=== PATIENT | male | born 1955 | race Caucasian/White ===

== ENCOUNTER 2022-06-10 05:18 | Inpatient (IN) | payer OTHER, MEDICARE ==
[2022-06-10] MEDS ORDERED: Scopolamine 1.5 MG Transdermal Patch TOP ONE (06:00)
[2022-06-10] MEDS ORDERED: Acetaminophen 500 MG Tab PO ONE (06:00)
[2022-06-10] MEDS ORDERED: Celecoxib 200 MG Cap PO ONE (06:00)
[2022-06-10] MEDS ORDERED: Metoprolol Succinate 25 MG Tab.ER PO ONE (06:06)
[2022-06-10 06:07] LABS: HEMOGLOBIN A1C 7.7 % (4.5-6.2)
[2022-06-10 06:22] LABS: ESTIMATED GFR 74 mL/min (>60)
[2022-06-10] MEDS ORDERED: cefOXitin 2 GM Vial ONE (06:32)
[2022-06-10] MEDS: Dextrose 5%-Lactated Ringers 1,000 ML IV SCH (06:55)
[2022-06-10] MEDS ORDERED: cefOXitin 2 GM in Sodium Chloride 0.9% 50 ML IV ONE (07:00)
[2022-06-10] MEDS ORDERED: Dexamethasone 4 MG/ML SDV ONE (07:07)
[2022-06-10] MEDS ORDERED: Glycopyrrolate 0.2 MG/ML 5 ML MDV ONE (07:07)
[2022-06-10] MEDS ORDERED: Neostigmine Methylsulfate 1 MG/ML 5 ML Syringe ONE (07:07)
[2022-06-10] MEDS ORDERED: Propofol 200 MG/20 ML SDV ONE (07:07)
[2022-06-10] MEDS ORDERED: Ondansetron 4 MG/2 ML SDV ONE (07:07)
[2022-06-10] MEDS ORDERED: Rocuronium 50 MG/5 ML Vial ONE ×2 (07:07→08:39)
[2022-06-10] MEDS ORDERED: Succinylcholine 200 MG/10 ML MDV ONE (07:07)
[2022-06-10] MEDS ORDERED: fentaNYL 250 MCG/5 ML SDV ONE ×2 (07:07→07:56)
[2022-06-10] MEDS ORDERED: Albuterol/Ipratropium 3.0-0.5 MG/3 ML Neb Soln NEB ONE (07:15)
[2022-06-10] MEDS ORDERED: Ketamine 24 MG in Sodium Chloride 0.9% 19.76 ML IV SCH (07:30)
[2022-06-10] MEDS ORDERED: Ketamine 500 MG/5 ML MDV IV SCH (07:30)
[2022-06-10] MEDS ORDERED: Ondansetron 4 MG/2 ML SDV IVPUSH PRN (08:38)
[2022-06-10] MEDS ORDERED: Naloxone 0.4 MG/ML SDV IVPUSH PRN (08:38)
[2022-06-10] MEDS ORDERED: diphenhydrAMINE 50 MG/ML SDV IVPUSH PRN (08:38)
[2022-06-10] MEDS ORDERED: HYDROmorphone/Normal Saline 6 MG/30 ML PCA Vial IV PRN (08:38)
[2022-06-10] MEDS ORDERED: diphenhydrAMINE 25 MG Cap PO PRN (08:38)
[2022-06-10] MEDS ORDERED: Naloxone 0.4 MG/ML SDV IV PRN (09:00)
[2022-06-10] MEDS ORDERED: fentaNYL 100 MCG/2 ML SDV ONE (09:26)
[2022-06-10] MEDS ORDERED: Linezolid 600 MG/300 ML Premix Bag IRR ONE ×2 (09:49→10:21)
[2022-06-10] MEDS: Meropenem 500 MG SDV ONE ×2 (09:49→10:21)
[2022-06-10] MEDS ORDERED: Lactated Ringers 1,000 ML ONE (10:53)
[2022-06-10] MEDS ORDERED: hydrOXYzine HCL 100 MG/2 ML SDV IM ONE (11:59)
[2022-06-10] MEDS ORDERED: Insulin Lispro 100 Unit/ML 3 ML KwikPen SUBCUT ONE (12:00)
[2022-06-10] MEDS ORDERED: Glucagon,Human Recombinant 1 MG Vial IM PRN ×4 (12:00→21:48)
[2022-06-10] MEDS ORDERED: 50% Dextrose in Water 50 ML Syringe IVPUSH PRN ×4 (12:00→21:48)
[2022-06-10] MEDS ORDERED: Cyclobenzaprine 10 MG Tab PO PRN (12:58)
[2022-06-10] MEDS ORDERED: Acetaminophen 500 MG Tab PO PRN (13:00)
[2022-06-10] MEDS ORDERED: Labetalol 20 MG/4 ML Syringe IVPUSH PRN (13:00)
[2022-06-10] MEDS ORDERED: Dextrose 5%-Lactated Ringers 1,000 ML IV SCH (13:00)
[2022-06-10] MEDS ORDERED: Lactated Ringers 1,000 ML IV SCH (13:00)
[2022-06-10] MEDS ORDERED: Metoclopramide 10 MG/2 ML SDV IVPUSH PRN (13:00)
[2022-06-10] MEDS ORDERED: Albuterol/Ipratropium 3.0-0.5 MG/3 ML Neb Soln INH PRN (13:00)
[2022-06-10] MEDS ORDERED: Lactated Ringers 500 ML IV ONE (14:15)
[2022-06-10] MEDS: Coagulation Factor VIIa Recombinant (per MCG) 2 MG Vial IVPUSH SCH ×2 (14:24→14:47)
[2022-06-10] MEDS: Tranexamic Acid 1,000 MG in Sodium Chloride 0.9% 50 ML IV SCH ×2 (14:26→17:45)
[2022-06-10] MEDS: Acetaminophen 500 MG Tab PO SCH ×2 (14:54→21:30)
[2022-06-10] MEDS: Pantoprazole 40 MG Vial IVPUSH SCH (14:56)
[2022-06-10] MEDS: cefOXitin 2 GM in Sodium Chloride 0.9% 50 ML IV SCH ×2 (14:58→20:13)
[2022-06-10] MEDS: MVI, Adult with Vitamin K 10 ML, Thiamine 200 MG, Zinc/Copper/Manganese/Selenium 1 ML i... IV SCH ×4 (14:59)
[2022-06-10] MEDS: Albuterol/Ipratropium 3.0-0.5 MG/3 ML Neb Soln INH SCH ×2 (15:04→21:25)
[2022-06-10] MEDS ORDERED: Insulin Lispro 100 Unit/ML 3 ML KwikPen SUBCUT STA (17:04)
[2022-06-10] MEDS ORDERED: Tranexamic Acid 1,000 MG in Sodium Chloride 0.9% 50 ML IV ONE (17:15)
[2022-06-10] MEDS: Insulin Lispro 100 Unit/ML 3 ML KwikPen SUBCUT SCH ×2 (17:39→21:53)
[2022-06-10] MEDS ORDERED: BRILINTA 60 MG PO SCH (21:00)
[2022-06-10] MEDS ORDERED: Lidocaine 2% Jelly 10 ML Urojet MUCMEM ONE (21:22)
[2022-06-10] MEDS: atorvaSTATin 20 MG Tab PO SCH (21:25)
[2022-06-10] MEDS ORDERED: Insulin Lispro 100 Units/ML 3 ML Vial SUBCUT ONE (21:48)
[2022-06-10] MEDS: Lactated Ringers 1,000 ML IV SCH (23:36)
[2022-06-11] MEDS ORDERED: Insulin Lispro 100 Units/ML 3 ML Vial SUBCUT ONE ×2 (00:11→02:49)
[2022-06-11] MEDS ORDERED: 50% Dextrose in Water 50 ML Syringe IVPUSH PRN ×3 (00:11→02:51)
[2022-06-11] MEDS ORDERED: Glucagon,Human Recombinant 1 MG Vial IM PRN ×3 (00:11→02:51)
[2022-06-11] MEDS: hydrOXYzine HCL 100 MG/2 ML SDV IM PRN ×3 (01:28→20:29)
[2022-06-11] MEDS: cefOXitin 2 GM in Sodium Chloride 0.9% 50 ML IV SCH ×4 (01:29→19:36)
[2022-06-11] MEDS ORDERED: Insulin Regular, Human 100 Units/ML 3 ML Vial SUBCUT ONE ×3 (02:51→06:47)
[2022-06-11] MEDS: Lactated Ringers 1,000 ML IV SCH ×3 (05:24→14:33)
[2022-06-11 05:30] LABS: ESTIMATED GFR 41 mL/min (>60)
[2022-06-11] MEDS: Acetaminophen 500 MG Tab PO SCH ×3 (05:40→22:48)
[2022-06-11] MEDS: Insulin Lispro 100 Unit/ML 3 ML KwikPen SUBCUT SCH ×2 (06:19→10:13)
[2022-06-11] MEDS ORDERED: Insulin Lispro 100 Unit/ML 3 ML KwikPen SUBCUT ONE (06:45)
[2022-06-11] MEDS ORDERED: Insulin Glargine,Human Rec. Analog 100 Units/ML 3 ML Pen SUBCUT ONE (06:51)
[2022-06-11] MEDS ORDERED: Lactated Ringers 500 ML IV ONE (06:53)
[2022-06-11] MEDS: Albuterol/Ipratropium 3.0-0.5 MG/3 ML Neb Soln INH SCH ×4 (07:16→22:40)
[2022-06-11] MEDS: SCOPOLAMINE PATCH CHECK TOP SCH (08:06)
[2022-06-11] MEDS: Metoprolol Succinate 25 MG Tab.ER PO SCH (08:08)
[2022-06-11] MEDS ORDERED: Celecoxib 200 MG Cap PO SCH (09:00)
[2022-06-11] MEDS: Magnesium Sulfate/Water 2 GM in Premix Bag 1 BAG IV SCH ×3 (10:10→20:16)
[2022-06-11] MEDS ORDERED: Insulin Regular in 0.9 % NACL 100 ML IV SCH (10:30)
[2022-06-11] MEDS: Pantoprazole 40 MG Vial IVPUSH SCH (14:23)
[2022-06-11] MEDS: MVI, Adult with Vitamin K 10 ML, Thiamine 200 MG, Zinc/Copper/Manganese/Selenium 1 ML i... IV SCH ×4 (16:01)
[2022-06-11] MEDS: Heparin Sodium 5,000 Units/ML Vial SUBCUT SCH (18:13)
[2022-06-11] MEDS: atorvaSTATin 20 MG Tab PO SCH (22:30)
[2022-06-12] MEDS: Lactated Ringers 1,000 ML IV SCH ×2 (01:04→06:15)
[2022-06-12] MEDS: cefOXitin 2 GM in Sodium Chloride 0.9% 50 ML IV SCH ×4 (02:02→20:02)
[2022-06-12] MEDS: Magnesium Sulfate/Water 2 GM in Premix Bag 1 BAG IV SCH ×4 (02:12→20:44)
[2022-06-12] MEDS: hydrOXYzine HCL 100 MG/2 ML SDV IM PRN ×2 (03:18→22:38)
[2022-06-12 05:17] LABS: ESTIMATED GFR 82 mL/min (>60)
[2022-06-12] MEDS: Acetaminophen 500 MG Tab PO SCH ×3 (05:19→21:50)
[2022-06-12] MEDS: Heparin Sodium 5,000 Units/ML Vial SUBCUT SCH (05:58)
[2022-06-12] MEDS: Albuterol/Ipratropium 3.0-0.5 MG/3 ML Neb Soln INH SCH ×4 (07:26→21:43)
[2022-06-12] MEDS ORDERED: Lactated Ringers 1,000 ML IV SCH (08:00)
[2022-06-12 08:53] LABS: HEMOGLOBIN A1C 8.3 % (4.5-6.2)
[2022-06-12] MEDS ORDERED: Cyanocobalamin (Vitamin B12) 1,000 MCG/ML SDV IM ONE (09:00)
[2022-06-12] MEDS: SCOPOLAMINE PATCH CHECK TOP SCH (09:50)
[2022-06-12] MEDS: Potassium Phos in 0.9 % NaCl 15 MMOL in Premix Bag 1 BAG IV SCH ×6 (09:58→16:23)
[2022-06-12] MEDS: Insulin Glargine,Human Rec. Analog 100 Units/ML 3 ML Pen SUBCUT SCH ×2 (10:06→20:54)
[2022-06-12] MEDS ORDERED: Furosemide 20 MG/2 ML VIAL IVPUSH ONE (10:30)
[2022-06-12] MEDS: metFORMIN 500 MG Tab PO SCH ×2 (10:53→20:58)
[2022-06-12] MEDS: Metoprolol Succinate 25 MG Tab.ER PO SCH (10:53)
[2022-06-12] MEDS: Insulin Lispro 100 Unit/ML 3 ML KwikPen SUBCUT SCH ×3 (11:15→20:17)
[2022-06-12] MEDS: Pantoprazole 40 MG Vial IVPUSH SCH (13:31)
[2022-06-12] MEDS ORDERED: Iopamidol 612 MG/ML 100 ML Bottle IV SCH (14:30)
[2022-06-12] MEDS ORDERED: Sodium Chloride 0.9% 75 ML IV SCH (14:30)
[2022-06-12] MEDS: Aspirin 325 MG Tab.EC PO SCH (17:28)
[2022-06-12] MEDS: atorvaSTATin 20 MG Tab PO SCH (20:59)
[2022-06-13] MEDS: Magnesium Sulfate/Water 2 GM in Premix Bag 1 BAG IV SCH (01:31)
[2022-06-13] MEDS: hydrOXYzine HCL 100 MG/2 ML SDV IM PRN ×2 (04:00→21:31)
[2022-06-13 05:08] LABS: ESTIMATED GFR 96 mL/min (>60)
[2022-06-13] MEDS: Acetaminophen 500 MG Tab PO SCH ×4 (05:44→22:36)
[2022-06-13] MEDS: Albuterol/Ipratropium 3.0-0.5 MG/3 ML Neb Soln INH SCH ×4 (07:03→21:32)
[2022-06-13] MEDS: Insulin Lispro 100 Unit/ML 3 ML KwikPen SUBCUT SCH ×4 (08:00→21:31)
[2022-06-13] MEDS: Insulin Glargine,Human Rec. Analog 100 Units/ML 3 ML Pen SUBCUT SCH ×2 (08:00→21:30)
[2022-06-13] MEDS: metFORMIN 500 MG Tab PO SCH ×2 (08:38→21:32)
[2022-06-13] MEDS: Metoprolol Succinate 25 MG Tab.ER PO SCH (08:38)
[2022-06-13] MEDS: Aspirin 325 MG Tab.EC PO SCH (08:38)
[2022-06-13] MEDS: Potassium Phos in 0.9 % NaCl 15 MMOL in Premix Bag 1 BAG IV SCH ×6 (08:39→15:39)
[2022-06-13] MEDS ORDERED: Furosemide 20 MG/2 ML VIAL IVPUSH ONE (11:30)
[2022-06-13] MEDS: Pantoprazole 40 MG Vial IVPUSH SCH (13:42)
[2022-06-13] MEDS: Ticagrelor 90 MG Tab PO SCH (21:32)
[2022-06-13] MEDS: atorvaSTATin 20 MG Tab PO SCH (21:32)
[2022-06-14] MEDS: Lactated Ringers 1,000 ML IV SCH ×3 (00:24→20:40)
[2022-06-14] MEDS: Metoprolol Succinate 25 MG Tab.ER PO SCH ×2 (02:30→14:57)
[2022-06-14 05:18] LABS: ESTIMATED GFR 96 mL/min (>60)
[2022-06-14] MEDS: HYDROmorphone 0.5 MG/0.5 ML Syringe IVPUSH PRN ×2 (05:26→20:42)
[2022-06-14] MEDS: Acetaminophen 500 MG Tab PO SCH ×3 (05:26→21:18)
[2022-06-14] MEDS: Albuterol/Ipratropium 3.0-0.5 MG/3 ML Neb Soln INH SCH ×4 (07:17→20:54)
[2022-06-14] MEDS: Insulin Lispro 100 Unit/ML 3 ML KwikPen SUBCUT SCH ×4 (07:58→21:01)
[2022-06-14] MEDS: Linezolid 600 MG in Premix Bag 1 BAG IV SCH ×2 (08:43→20:49)
[2022-06-14] MEDS: Insulin Glargine,Human Rec. Analog 100 Units/ML 3 ML Pen SUBCUT SCH ×2 (10:32→21:02)
[2022-06-14] MEDS ORDERED: Iopamidol 612 MG/ML 30 ML SDV PO ONE (11:51)
[2022-06-14] MEDS: Ticagrelor 90 MG Tab PO SCH ×2 (14:56→20:50)
[2022-06-14] MEDS: Aspirin 81 MG Tab.Chew PO SCH (14:56)
[2022-06-14] MEDS: metFORMIN 500 MG Tab PO SCH ×2 (14:56→20:50)
[2022-06-14] MEDS: Pantoprazole 40 MG Vial IVPUSH SCH (14:58)
[2022-06-14] MEDS: atorvaSTATin 20 MG Tab PO SCH (20:51)
[2022-06-15] MEDS: HYDROmorphone 0.5 MG/0.5 ML Syringe IVPUSH PRN ×2 (02:01→09:54)
[2022-06-15 05:15] LABS: ESTIMATED GFR 100 mL/min (>60)
[2022-06-15] MEDS: Acetaminophen 500 MG Tab PO SCH ×3 (05:57→21:45)
[2022-06-15] MEDS: Albuterol/Ipratropium 3.0-0.5 MG/3 ML Neb Soln INH SCH ×4 (07:05→21:54)
[2022-06-15] MEDS: Insulin Lispro 100 Unit/ML 3 ML KwikPen SUBCUT SCH ×4 (08:27→20:41)
[2022-06-15] MEDS: Linezolid 600 MG in Premix Bag 1 BAG IV SCH ×2 (08:36→20:49)
[2022-06-15] MEDS: Ticagrelor 90 MG Tab PO SCH ×2 (09:31→21:35)
[2022-06-15] MEDS: Aspirin 81 MG Tab.Chew PO SCH (09:31)
[2022-06-15] MEDS: Metoprolol Succinate 25 MG Tab.ER PO SCH (09:33)
[2022-06-15] MEDS: metFORMIN 500 MG Tab PO SCH (09:44)
[2022-06-15] MEDS: Insulin Glargine,Human Rec. Analog 100 Units/ML 3 ML Pen SUBCUT SCH ×2 (09:44→21:44)
[2022-06-15] MEDS ORDERED: Bupivacaine 0.5% 30 ML SDV ONE (11:57)
[2022-06-15] MEDS ORDERED: Meropenem 500 MG SDV ONE ×2 (11:58→13:24)
[2022-06-15] MEDS ORDERED: Lidocaine 1% with EPINEPHrine 1:100,000 50 ML MDV ONE (11:58)
[2022-06-15] MEDS ORDERED: Ondansetron 4 MG/2 ML SDV ONE (12:25)
[2022-06-15] MEDS ORDERED: fentaNYL 250 MCG/5 ML SDV ONE (12:25)
[2022-06-15] MEDS ORDERED: Rocuronium 50 MG/5 ML Vial ONE ×3 (12:25→14:00)
[2022-06-15] MEDS ORDERED: Propofol 200 MG/20 ML SDV ONE (12:25)
[2022-06-15] MEDS ORDERED: Dexamethasone 4 MG/ML SDV ONE (12:25)
[2022-06-15] MEDS ORDERED: Heparin Sodium 5,000 Units/ML Vial ONE (12:34)
[2022-06-15] MEDS ORDERED: Meropenem 500 MG in Sodium Chloride 0.9% 50 ML IV ONE (13:00)
[2022-06-15] MEDS ORDERED: Linezolid 600 MG/300 ML Premix Bag IRR ONE ×2 (13:52→13:53)
[2022-06-15] MEDS ORDERED: Naloxone 0.4 MG/ML SDV IVPUSH PRN (13:56)
[2022-06-15] MEDS ORDERED: diphenhydrAMINE 50 MG/ML SDV IVPUSH PRN (13:56)
[2022-06-15] MEDS ORDERED: Ondansetron 4 MG/2 ML SDV IVPUSH PRN (13:56)
[2022-06-15] MEDS ORDERED: diphenhydrAMINE 25 MG Cap PO PRN (13:56)
[2022-06-15] MEDS ORDERED: Midazolam 1 MG/ML 2 ML SDV ONE (14:18)
[2022-06-15] MEDS: HYDROmorphone/Normal Saline 6 MG/30 ML PCA Vial IV PRN (14:58)
[2022-06-15] MEDS ORDERED: HYDROmorphone 1 MG/ML Syringe IVPUSH STA (15:11)
[2022-06-15] MEDS: Dextrose 5%-Lactated Ringers 1,000 ML IV SCH (15:54)
[2022-06-15] MEDS ORDERED: Dextrose 5%-Lactated Ringers 1,000 ML IV SCH (16:00)
[2022-06-15] MEDS: propofoL 100 ML IV SCH (16:35)
[2022-06-15] MEDS: Pantoprazole 40 MG Vial IVPUSH SCH (17:00)
[2022-06-15] MEDS: Meropenem 500 MG in Sodium Chloride 0.9% 50 ML IV SCH (18:29)
[2022-06-15] MEDS: Lactated Ringers 1,000 ML IV SCH ×2 (19:00→23:09)
[2022-06-15] MEDS ORDERED: Lactated Ringers 500 ML IV SCH (19:00)
[2022-06-15] MEDS ORDERED: Norepinephrine Bit/D5W Premix 4 MG in Premix Bag 1 BAG IV SCH (20:30)
[2022-06-15] MEDS: atorvaSTATin 20 MG Tab PO SCH (21:45)
[2022-06-15] MEDS ORDERED: Sodium Chloride 0.9% 1,000 ML IV SCH (22:00)
[2022-06-16] MEDS: Meropenem 500 MG in Sodium Chloride 0.9% 50 ML IV SCH ×4 (00:06→18:04)
[2022-06-16] MEDS ORDERED: Heparin Sodium 5,000 UNITS in Sodium Chloride 0.9% 500 ML IV SCH (00:15)
[2022-06-16] MEDS: Acetaminophen 500 MG Tab PO SCH ×3 (05:41→21:15)
[2022-06-16] MEDS: propofoL 100 ML IV SCH ×2 (05:43→21:55)
[2022-06-16] MEDS: Insulin Lispro 100 Unit/ML 3 ML KwikPen SUBCUT SCH ×4 (05:44→21:29)
[2022-06-16 05:48] LABS: ESTIMATED GFR 93 mL/min (>60)
[2022-06-16] MEDS: Lactated Ringers 1,000 ML IV SCH ×3 (06:01→20:48)
[2022-06-16] MEDS: Albuterol/Ipratropium 3.0-0.5 MG/3 ML Neb Soln INH SCH ×4 (07:02→21:25)
[2022-06-16] MEDS ORDERED: Lactated Ringers 1,000 ML IV SCH ×2 (08:00→10:00)
[2022-06-16] MEDS: Linezolid 600 MG in Premix Bag 1 BAG IV SCH ×2 (08:19→20:56)
[2022-06-16] MEDS: Ticagrelor 90 MG Tab PO SCH ×2 (08:29→20:55)
[2022-06-16] MEDS: Aspirin 81 MG Tab.Chew PO SCH (08:29)
[2022-06-16] MEDS: Metoprolol Succinate 25 MG Tab.ER PO SCH (08:30)
[2022-06-16] MEDS: Insulin Glargine,Human Rec. Analog 100 Units/ML 3 ML Pen SUBCUT SCH ×3 (10:10→21:28)
[2022-06-16] MEDS: Pantoprazole 40 MG Vial IVPUSH SCH (14:45)
[2022-06-16] MEDS: atorvaSTATin 20 MG Tab PO SCH (20:55)
[2022-06-17] MEDS: Meropenem 500 MG in Sodium Chloride 0.9% 50 ML IV SCH ×4 (00:19→17:48)
[2022-06-17] MEDS: HYDROmorphone/Normal Saline 6 MG/30 ML PCA Vial IV PRN (04:03)
[2022-06-17] MEDS: Lactated Ringers 1,000 ML IV SCH ×3 (04:14→17:53)
[2022-06-17 05:14] LABS: ESTIMATED GFR 96 mL/min (>60)
[2022-06-17] MEDS: propofoL 100 ML IV SCH (05:35)
[2022-06-17] MEDS: Insulin Lispro 100 Unit/ML 3 ML KwikPen SUBCUT SCH ×4 (06:29→21:27)
[2022-06-17] MEDS: Acetaminophen 500 MG Tab PO SCH ×3 (06:29→21:12)
[2022-06-17] MEDS: Albuterol/Ipratropium 3.0-0.5 MG/3 ML Neb Soln INH SCH ×4 (07:02→21:13)
[2022-06-17] MEDS: Linezolid 600 MG in Premix Bag 1 BAG IV SCH ×2 (07:42→19:56)
[2022-06-17] MEDS: Insulin Glargine,Human Rec. Analog 100 Units/ML 3 ML Pen SUBCUT SCH (10:24)
[2022-06-17] MEDS: Nystatin Susp 100,000 Unit/ML 5 ML UD Cup PO SCH ×3 (10:34→21:13)
[2022-06-17] MEDS: Ticagrelor 90 MG Tab PO SCH ×2 (11:53→21:13)
[2022-06-17] MEDS: Aspirin 81 MG Tab.Chew PO SCH (11:53)
[2022-06-17] MEDS: Metoprolol Succinate 25 MG Tab.ER PO SCH (11:53)
[2022-06-17] MEDS: Pantoprazole 40 MG Vial IVPUSH SCH (14:11)
[2022-06-17] MEDS: atorvaSTATin 20 MG Tab PO SCH (21:13)
[2022-06-18] MEDS: Lactated Ringers 1,000 ML IV SCH (02:33)
[2022-06-18] MEDS: Meropenem 500 MG in Sodium Chloride 0.9% 50 ML IV SCH ×5 (05:09→17:41)
[2022-06-18] MEDS: Insulin Lispro 100 Unit/ML 3 ML KwikPen SUBCUT SCH ×4 (05:25→22:00)
[2022-06-18 05:27] LABS: ESTIMATED GFR 105 mL/min (>60)
[2022-06-18] MEDS: Nystatin Susp 100,000 Unit/ML 5 ML UD Cup PO SCH ×4 (05:31→21:48)
[2022-06-18] MEDS: Acetaminophen 500 MG Tab PO SCH ×3 (05:31→21:48)
[2022-06-18] MEDS ORDERED: Meropenem 500 MG SDV ONE (06:52)
[2022-06-18] MEDS ORDERED: Lidocaine 1% with EPINEPHrine 1:100,000 50 ML MDV ONE (06:53)
[2022-06-18] MEDS ORDERED: Bupivacaine 0.5% 30 ML SDV ONE (06:53)
[2022-06-18] MEDS ORDERED: Propofol 200 MG/20 ML SDV ONE (07:10)
[2022-06-18] MEDS: Albuterol/Ipratropium 3.0-0.5 MG/3 ML Neb Soln INH SCH ×4 (07:11→21:52)
[2022-06-18] MEDS ORDERED: Central Total Parenteral Nutrition Bag SCH (07:45)
[2022-06-18] MEDS: Linezolid 600 MG in Premix Bag 1 BAG IV SCH ×2 (08:37→20:41)
[2022-06-18] MEDS: Aspirin 81 MG Tab.Chew PO SCH (08:59)
[2022-06-18] MEDS: Metoprolol Succinate 25 MG Tab.ER PO SCH (08:59)
[2022-06-18] MEDS: Ticagrelor 90 MG Tab PO SCH ×2 (08:59→21:40)
[2022-06-18] MEDS ORDERED: Furosemide 20 MG/2 ML VIAL IVPUSH ONE ×3 (10:00→18:00)
[2022-06-18] MEDS: Magnesium Sulfate/Water 2 GM in Premix Bag 1 BAG IV SCH ×3 (10:02→21:42)
[2022-06-18] MEDS: 1: AA 4.25%/Calcium/D10W/Lytes 1,000 ML with MVI, Adult with Vitamin K 10 ML, Zinc/Coppe IV SCH ×6 (10:11→22:21)
[2022-06-18] MEDS: Pantoprazole 40 MG Delayed-Release Granules 1 Packet PO SCH (21:41)
[2022-06-18] MEDS: atorvaSTATin 20 MG Tab PO SCH (21:41)
[2022-06-18] MEDS: Insulin Glargine,Human Rec. Analog 100 Units/ML 3 ML Pen SUBCUT SCH (21:58)
[2022-06-19] MEDS: Meropenem 500 MG in Sodium Chloride 0.9% 50 ML IV SCH ×5 (00:08→23:59)
[2022-06-19] MEDS: HYDROmorphone/Normal Saline 6 MG/30 ML PCA Vial IV PRN (01:38)
[2022-06-19] MEDS: Magnesium Sulfate/Water 2 GM in Premix Bag 1 BAG IV SCH (02:20)
[2022-06-19] MEDS: Insulin Lispro 100 Unit/ML 3 ML KwikPen SUBCUT SCH ×4 (03:35→20:37)
[2022-06-19 04:55] LABS: ESTIMATED GFR 100 mL/min (>60)
[2022-06-19] MEDS: Acetaminophen 500 MG Tab PO SCH ×4 (05:25→22:14)
[2022-06-19] MEDS: Nystatin Susp 100,000 Unit/ML 5 ML UD Cup PO SCH ×5 (05:25→22:14)
[2022-06-19] MEDS: Albuterol/Ipratropium 3.0-0.5 MG/3 ML Neb Soln INH SCH ×4 (07:03→20:34)
[2022-06-19] MEDS ORDERED: Central Total Parenteral Nutrition Bag SCH (07:30)
[2022-06-19] MEDS: Linezolid 600 MG in Premix Bag 1 BAG IV SCH ×2 (07:44→20:30)
[2022-06-19] MEDS: Metoprolol Succinate 25 MG Tab.ER PO SCH (08:16)
[2022-06-19] MEDS: Aspirin 81 MG Tab.Chew PO SCH (08:16)
[2022-06-19] MEDS: Ticagrelor 90 MG Tab PO SCH ×2 (08:16→20:36)
[2022-06-19] MEDS: Docusate Sodium 100 MG Cap PO SCH ×2 (08:17→20:35)
[2022-06-19] MEDS: Insulin Glargine,Human Rec. Analog 100 Units/ML 3 ML Pen SUBCUT SCH ×2 (09:25→20:38)
[2022-06-19] MEDS ORDERED: Furosemide 20 MG/2 ML VIAL IVPUSH ONE (11:00)
[2022-06-19] MEDS: 1: AA 4.25%/Calcium/D10W/Lytes 1,000 ML with MVI, Adult with Vitamin K 10 ML, Zinc/Coppe IV SCH ×3 (13:02)
[2022-06-19] MEDS: atorvaSTATin 20 MG Tab PO SCH (20:36)
[2022-06-19] MEDS: Pantoprazole 40 MG Delayed-Release Granules 1 Packet PO SCH (20:36)
[2022-06-20] MEDS: 1: AA 4.25%/Calcium/D10W/Lytes 1,000 ML with MVI, Adult with Vitamin K 10 ML, Zinc/Coppe IV SCH ×6 (00:08→14:07)
[2022-06-20] MEDS: Magnesium Sulfate/Water 2 GM in Premix Bag 1 BAG IV SCH (00:41)
[2022-06-20] MEDS: Insulin Lispro 100 Unit/ML 3 ML KwikPen SUBCUT SCH ×5 (00:41→21:17)
[2022-06-20] MEDS: HYDROmorphone/Normal Saline 6 MG/30 ML PCA Vial IV PRN (03:46)
[2022-06-20 05:19] LABS: ESTIMATED GFR 100 mL/min (>60)
[2022-06-20] MEDS: Acetaminophen 500 MG Tab PO SCH ×3 (05:54→21:51)
[2022-06-20] MEDS: Meropenem 500 MG in Sodium Chloride 0.9% 50 ML IV SCH ×3 (05:54→17:09)
[2022-06-20] MEDS: Nystatin Susp 100,000 Unit/ML 5 ML UD Cup PO SCH ×4 (05:55→21:51)
[2022-06-20] MEDS ORDERED: Central Total Parenteral Nutrition Bag SCH (07:00)
[2022-06-20] MEDS ORDERED: Iopamidol 612 MG/ML 30 ML SDV PO ONE (07:26)
[2022-06-20] MEDS ORDERED: Iopamidol 612 MG/ML 500 ML Multipack Bottle IV ONE (07:26)
[2022-06-20] MEDS ORDERED: Sodium Chloride 0.9% 75 ML IV SCH (07:30)
[2022-06-20] MEDS: Albuterol/Ipratropium 3.0-0.5 MG/3 ML Neb Soln INH SCH ×4 (07:31→21:47)
[2022-06-20] MEDS: Linezolid 600 MG in Premix Bag 1 BAG IV SCH ×2 (07:39→21:20)
[2022-06-20] MEDS: Insulin Glargine,Human Rec. Analog 100 Units/ML 3 ML Pen SUBCUT SCH ×2 (08:54→21:19)
[2022-06-20] MEDS: Aspirin 81 MG Tab.Chew PO SCH (10:00)
[2022-06-20] MEDS: Metoprolol Succinate 25 MG Tab.ER PO SCH (10:00)
[2022-06-20] MEDS: Docusate Sodium 100 MG Cap PO SCH ×2 (10:03→21:46)
[2022-06-20] MEDS: Ticagrelor 90 MG Tab PO SCH ×2 (10:03→21:49)
[2022-06-20] MEDS: Levofloxacin/Dextrose 5%-Water 750 MG in Premix Bag 1 BAG IV SCH (14:44)
[2022-06-20] MEDS: atorvaSTATin 20 MG Tab PO SCH (21:50)
[2022-06-20] MEDS: Pantoprazole 40 MG Delayed-Release Granules 1 Packet PO SCH (21:50)
[2022-06-20] MEDS: diphenhydrAMINE 50 MG/ML SDV IVPUSH PRN (22:55)
[2022-06-20] MEDS: LORazepam 2 MG/ML SDV IVPUSH PRN (23:27)
[2022-06-21] MEDS: Meropenem 500 MG in Sodium Chloride 0.9% 50 ML IV SCH ×4 (00:37→16:59)
[2022-06-21] MEDS: LORazepam 2 MG/ML SDV IVPUSH PRN ×4 (01:51→20:50)
[2022-06-21] MEDS: 1: AA 4.25%/Calcium/D10W/Lytes 1,000 ML with MVI, Adult with Vitamin K 10 ML, Zinc/Coppe IV SCH ×6 (02:17→14:01)
[2022-06-21 05:22] LABS: ESTIMATED GFR 105 mL/min (>60)
[2022-06-21] MEDS: Acetaminophen 500 MG Tab PO SCH ×4 (05:26→21:28)
[2022-06-21] MEDS: Nystatin Susp 100,000 Unit/ML 5 ML UD Cup PO SCH ×5 (05:26→21:43)
[2022-06-21] MEDS: Albuterol/Ipratropium 3.0-0.5 MG/3 ML Neb Soln INH SCH ×4 (07:14→21:05)
[2022-06-21] MEDS ORDERED: Central Total Parenteral Nutrition Bag SCH (07:45)
[2022-06-21] MEDS: Linezolid 600 MG in Premix Bag 1 BAG IV SCH ×2 (07:54→20:41)
[2022-06-21] MEDS: Insulin Lispro 100 Unit/ML 3 ML KwikPen SUBCUT SCH ×4 (08:01→20:50)
[2022-06-21] MEDS: Insulin Glargine,Human Rec. Analog 100 Units/ML 3 ML Pen SUBCUT SCH ×2 (08:04→20:51)
[2022-06-21] MEDS: Ticagrelor 90 MG Tab PO SCH ×2 (08:16→20:55)
[2022-06-21] MEDS: Metoprolol Succinate 25 MG Tab.ER PO SCH (08:17)
[2022-06-21] MEDS: Aspirin 81 MG Tab.Chew PO SCH (08:18)
[2022-06-21] MEDS: HYDROmorphone/Normal Saline 6 MG/30 ML PCA Vial IV PRN (10:25)
[2022-06-21] MEDS: Levofloxacin/Dextrose 5%-Water 750 MG in Premix Bag 1 BAG IV SCH (14:04)
[2022-06-21] MEDS: atorvaSTATin 20 MG Tab PO SCH (20:55)
[2022-06-21] MEDS: Pantoprazole 40 MG Delayed-Release Granules 1 Packet PO SCH (20:55)
[2022-06-21] MEDS: diphenhydrAMINE 50 MG/ML SDV IVPUSH PRN (22:26)
[2022-06-22] MEDS: Meropenem 500 MG in Sodium Chloride 0.9% 50 ML IV SCH ×5 (00:01→23:56)
[2022-06-22] MEDS: LORazepam 2 MG/ML SDV IVPUSH PRN (02:05)
[2022-06-22] MEDS: 1: AA 4.25%/Calcium/D10W/Lytes 1,000 ML with MVI, Adult with Vitamin K 10 ML, Zinc/Coppe IV SCH ×6 (02:14→14:53)
[2022-06-22 04:57] LABS: ESTIMATED GFR 105 mL/min (>60)
[2022-06-22] MEDS: Acetaminophen 500 MG Tab PO SCH ×3 (05:45→21:22)
[2022-06-22] MEDS: Nystatin Susp 100,000 Unit/ML 5 ML UD Cup PO SCH ×4 (05:45→21:21)
[2022-06-22] MEDS: Albuterol/Ipratropium 3.0-0.5 MG/3 ML Neb Soln INH SCH ×4 (07:17→20:50)
[2022-06-22] MEDS ORDERED: Central Total Parenteral Nutrition Bag SCH (07:45)
[2022-06-22] MEDS: HYDROmorphone/Normal Saline 6 MG/30 ML PCA Vial IV PRN (08:18)
[2022-06-22] MEDS: Insulin Lispro 100 Unit/ML 3 ML KwikPen SUBCUT SCH ×4 (08:24→20:51)
[2022-06-22] MEDS: Insulin Glargine,Human Rec. Analog 100 Units/ML 3 ML Pen SUBCUT SCH ×2 (08:25→20:54)
[2022-06-22] MEDS: Linezolid 600 MG in Premix Bag 1 BAG IV SCH ×2 (08:26→19:27)
[2022-06-22] MEDS: Metoprolol Succinate 25 MG Tab.ER PO SCH (08:39)
[2022-06-22] MEDS: Aspirin 81 MG Tab.Chew PO SCH (08:41)
[2022-06-22] MEDS: Ticagrelor 90 MG Tab PO SCH ×2 (08:46→20:51)
[2022-06-22] MEDS: Levofloxacin/Dextrose 5%-Water 750 MG in Premix Bag 1 BAG IV SCH (14:51)
[2022-06-22] MEDS: Pantoprazole 40 MG Delayed-Release Granules 1 Packet PO SCH (20:50)
[2022-06-22] MEDS: Melatonin 3 MG Tab PO SCH (20:50)
[2022-06-22] MEDS: atorvaSTATin 20 MG Tab PO SCH (20:51)
[2022-06-22] MEDS: LORazepam 0.5 MG Tab PO PRN (21:21)
[2022-06-23] MEDS: 1: AA 4.25%/Calcium/D10W/Lytes 1,000 ML with MVI, Adult with Vitamin K 10 ML, Zinc/Coppe IV SCH ×6 (02:32→15:05)
[2022-06-23] MEDS: LORazepam 0.5 MG Tab PO PRN ×4 (02:35→23:09)
[2022-06-23 05:19] LABS: ESTIMATED GFR 105 mL/min (>60)
[2022-06-23] MEDS: Acetaminophen 500 MG Tab PO SCH ×3 (05:41→23:12)
[2022-06-23] MEDS: Nystatin Susp 100,000 Unit/ML 5 ML UD Cup PO SCH ×4 (05:41→23:11)
[2022-06-23] MEDS: Meropenem 500 MG in Sodium Chloride 0.9% 50 ML IV SCH ×3 (05:42→17:10)
[2022-06-23] MEDS ORDERED: Central Total Parenteral Nutrition Bag SCH (06:45)
[2022-06-23] MEDS: Albuterol/Ipratropium 3.0-0.5 MG/3 ML Neb Soln INH SCH ×4 (06:58→20:36)
[2022-06-23] MEDS: Linezolid 600 MG in Premix Bag 1 BAG IV SCH ×2 (07:16→19:45)
[2022-06-23] MEDS: Insulin Lispro 100 Unit/ML 3 ML KwikPen SUBCUT SCH ×4 (07:16→20:38)
[2022-06-23] MEDS ORDERED: Sodium Chloride 0.9% 10 ML Syringe FLUSH PRN (07:28)
[2022-06-23] MEDS ORDERED: Iopamidol 612 MG/ML 50 ML SDV PO ONE (07:28)
[2022-06-23] MEDS ORDERED: Sodium Chloride 0.9% 50 ML IV ONE (07:28)
[2022-06-23] MEDS ORDERED: Iopamidol 612 MG/ML 150 ML Bottle IV SCH (07:30)
[2022-06-23] MEDS: Docusate Sodium 100 MG Cap PO SCH ×2 (08:54→20:36)
[2022-06-23] MEDS: Metoprolol Succinate 25 MG Tab.ER PO SCH (08:54)
[2022-06-23] MEDS: Ticagrelor 90 MG Tab PO SCH ×2 (08:55→20:36)
[2022-06-23] MEDS: Insulin Glargine,Human Rec. Analog 100 Units/ML 3 ML Pen SUBCUT SCH ×2 (08:55→20:36)
[2022-06-23] MEDS: Aspirin 81 MG Tab.Chew PO SCH (08:55)
[2022-06-23] MEDS: Magnesium Sulfate/Water 2 GM/50 ML BAG IV SCH ×3 (09:03→23:10)
[2022-06-23] MEDS: Levofloxacin/Dextrose 5%-Water 750 MG in Premix Bag 1 BAG IV SCH (13:03)
[2022-06-23] MEDS: atorvaSTATin 20 MG Tab PO SCH (20:36)
[2022-06-23] MEDS: Pantoprazole 40 MG Delayed-Release Granules 1 Packet PO SCH (20:36)
[2022-06-23] MEDS: Melatonin 3 MG Tab PO SCH (20:36)
[2022-06-24] MEDS: Meropenem 500 MG in Sodium Chloride 0.9% 50 ML IV SCH ×2 (00:55→05:01)
[2022-06-24] MEDS: diphenhydrAMINE 50 MG/ML SDV IVPUSH PRN ×2 (00:56→20:24)
[2022-06-24] MEDS: 1: AA 4.25%/Calcium/D10W/Lytes 1,000 ML with MVI, Adult with Vitamin K 10 ML, Zinc/Coppe IV SCH ×6 (03:26→15:13)
[2022-06-24 04:49] LABS: ESTIMATED GFR 100 mL/min (>60)
[2022-06-24] MEDS: Magnesium Sulfate/Water 2 GM/50 ML BAG IV SCH ×4 (05:03→21:34)
[2022-06-24] MEDS: Nystatin Susp 100,000 Unit/ML 5 ML UD Cup PO SCH ×4 (05:43→21:16)
[2022-06-24] MEDS: Acetaminophen 500 MG Tab PO SCH ×2 (06:11→13:24)
[2022-06-24] MEDS ORDERED: Central Total Parenteral Nutrition Bag SCH ×2 (07:15→11:30)
[2022-06-24] MEDS: Albuterol/Ipratropium 3.0-0.5 MG/3 ML Neb Soln INH SCH ×4 (07:26→20:24)
[2022-06-24] MEDS: Docusate Sodium 100 MG Cap PO SCH ×2 (08:28→20:26)
[2022-06-24] MEDS: Insulin Glargine,Human Rec. Analog 100 Units/ML 3 ML Pen SUBCUT SCH ×2 (08:28→21:35)
[2022-06-24] MEDS: Metoprolol Succinate 25 MG Tab.ER PO SCH (08:28)
[2022-06-24] MEDS: Aspirin 81 MG Tab.Chew PO SCH (08:28)
[2022-06-24] MEDS: Ticagrelor 90 MG Tab PO SCH ×2 (08:28→20:25)
[2022-06-24] MEDS: Insulin Lispro 100 Unit/ML 3 ML KwikPen SUBCUT SCH ×4 (08:29→21:36)
[2022-06-24] MEDS: HYDROmorphone 2 MG Tab PO PRN ×2 (08:29→20:36)
[2022-06-24] MEDS: Levofloxacin/Dextrose 5%-Water 750 MG in Premix Bag 1 BAG IV SCH (13:23)
[2022-06-24] MEDS: LORazepam 0.5 MG Tab PO PRN ×2 (15:11→20:24)
[2022-06-24] MEDS: Melatonin 3 MG Tab PO SCH (20:26)
[2022-06-24] MEDS: atorvaSTATin 20 MG Tab PO SCH (20:26)
[2022-06-24] MEDS: Pantoprazole 40 MG Delayed-Release Granules 1 Packet PO SCH (20:27)
[2022-06-24] MEDS: traZODone 50 MG Tab PO SCH (20:27)
[2022-06-25] MEDS: diphenhydrAMINE 50 MG/ML SDV IVPUSH PRN ×2 (02:32→20:33)
[2022-06-25] MEDS: 1: AA 4.25%/Calcium/D10W/Lytes 1,000 ML with MVI, Adult with Vitamin K 10 ML, Zinc/Coppe IV SCH ×6 (03:08→13:55)
[2022-06-25] MEDS: HYDROmorphone 2 MG Tab PO PRN ×4 (03:53→20:45)
[2022-06-25] MEDS: Magnesium Sulfate/Water 2 GM/50 ML BAG IV SCH ×4 (03:54→22:14)
[2022-06-25] MEDS: LORazepam 0.5 MG Tab PO PRN ×4 (05:03→20:34)
[2022-06-25 05:05] LABS: ESTIMATED GFR 100 mL/min (>60)
[2022-06-25] MEDS: Nystatin Susp 100,000 Unit/ML 5 ML UD Cup PO SCH ×6 (05:06→22:18)
[2022-06-25] MEDS: Albuterol/Ipratropium 3.0-0.5 MG/3 ML Neb Soln INH SCH ×4 (06:58→20:33)
[2022-06-25] MEDS: Aspirin 81 MG Tab.Chew PO SCH (08:28)
[2022-06-25] MEDS: Ticagrelor 90 MG Tab PO SCH ×2 (08:28→20:35)
[2022-06-25] MEDS: FLUoxetine 20 MG Cap PO SCH (08:29)
[2022-06-25] MEDS: Metoprolol Succinate 25 MG Tab.ER PO SCH (08:29)
[2022-06-25] MEDS: Insulin Lispro 100 Unit/ML 3 ML KwikPen SUBCUT SCH ×4 (08:30→22:16)
[2022-06-25] MEDS: Insulin Glargine,Human Rec. Analog 100 Units/ML 3 ML Pen SUBCUT SCH ×2 (08:30→22:17)
[2022-06-25] MEDS: Docusate Sodium 100 MG Cap PO SCH ×2 (08:30→20:36)
[2022-06-25] MEDS: Levofloxacin/Dextrose 5%-Water 750 MG in Premix Bag 1 BAG IV SCH (13:55)
[2022-06-25] MEDS: Acetaminophen 325 MG Tab PO PRN (20:34)
[2022-06-25] MEDS: atorvaSTATin 20 MG Tab PO SCH (20:35)
[2022-06-25] MEDS: traZODone 50 MG Tab PO SCH (20:35)
[2022-06-25] MEDS: Pantoprazole 40 MG Delayed-Release Granules 1 Packet PO SCH (20:35)
[2022-06-25] MEDS: Melatonin 3 MG Tab PO SCH (20:36)
[2022-06-26] MEDS: Magnesium Sulfate/Water 2 GM/50 ML BAG IV SCH (04:14)
[2022-06-26 05:07] LABS: ESTIMATED GFR 100 mL/min (>60)
[2022-06-26] MEDS: Nystatin Susp 100,000 Unit/ML 5 ML UD Cup PO SCH ×4 (05:59→21:47)
[2022-06-26] MEDS: 1: AA 4.25%/Calcium/D10W/Lytes 1,000 ML with MVI, Adult with Vitamin K 10 ML, Zinc/Coppe IV SCH ×6 (06:00→23:05)
[2022-06-26] MEDS: Albuterol/Ipratropium 3.0-0.5 MG/3 ML Neb Soln INH SCH ×4 (06:58→21:48)
[2022-06-26] MEDS: Insulin Lispro 100 Unit/ML 3 ML KwikPen SUBCUT SCH ×4 (07:31→21:35)
[2022-06-26] MEDS: Metoprolol Succinate 25 MG Tab.ER PO SCH (08:10)
[2022-06-26] MEDS: Docusate Sodium 100 MG Cap PO SCH ×2 (08:10→21:48)
[2022-06-26] MEDS: FLUoxetine 20 MG Cap PO SCH (08:10)
[2022-06-26] MEDS: Aspirin 81 MG Tab.Chew PO SCH (08:10)
[2022-06-26] MEDS: Ticagrelor 90 MG Tab PO SCH ×2 (08:10→21:46)
[2022-06-26] MEDS: Insulin Glargine,Human Rec. Analog 100 Units/ML 3 ML Pen SUBCUT SCH ×2 (08:17→21:36)
[2022-06-26] MEDS: Acetaminophen 325 MG Tab PO PRN ×2 (10:06→16:51)
[2022-06-26] MEDS: LORazepam 0.5 MG Tab PO PRN ×2 (10:06→18:57)
[2022-06-26] MEDS: Levofloxacin/Dextrose 5%-Water 750 MG in Premix Bag 1 BAG IV SCH (14:09)
[2022-06-26] MEDS: Magnesium Hydroxide 400 MG/5 ML Susp 30 ML Cup PO PRN (16:51)
[2022-06-26] MEDS: traZODone 50 MG Tab PO SCH (21:47)
[2022-06-26] MEDS: Melatonin 3 MG Tab PO SCH (21:47)
[2022-06-26] MEDS: atorvaSTATin 20 MG Tab PO SCH (21:47)
[2022-06-26] MEDS: Pantoprazole 40 MG Delayed-Release Granules 1 Packet PO SCH (21:47)
[2022-06-27 05:24] LABS: ESTIMATED GFR 100 mL/min (>60)
[2022-06-27] MEDS: Nystatin Susp 100,000 Unit/ML 5 ML UD Cup PO SCH ×4 (06:22→21:13)
[2022-06-27] MEDS ORDERED: Central Total Parenteral Nutrition Bag SCH (07:00)
[2022-06-27] MEDS: Albuterol/Ipratropium 3.0-0.5 MG/3 ML Neb Soln INH SCH ×4 (07:19→20:14)
[2022-06-27] MEDS: Insulin Glargine,Human Rec. Analog 100 Units/ML 3 ML Pen SUBCUT SCH ×2 (08:07→21:12)
[2022-06-27] MEDS: Insulin Lispro 100 Unit/ML 3 ML KwikPen SUBCUT SCH ×4 (08:07→21:12)
[2022-06-27] MEDS: Ticagrelor 90 MG Tab PO SCH ×2 (08:08→20:14)
[2022-06-27] MEDS: Aspirin 81 MG Tab.Chew PO SCH (08:08)
[2022-06-27] MEDS: Metoprolol Succinate 25 MG Tab.ER PO SCH (08:08)
[2022-06-27] MEDS: FLUoxetine 20 MG Cap PO SCH (08:08)
[2022-06-27] MEDS: Magnesium Sulfate/Water 2 GM/50 ML BAG IV SCH ×3 (08:28→20:08)
[2022-06-27] MEDS: LORazepam 0.5 MG Tab PO PRN ×2 (08:31→18:06)
[2022-06-27] MEDS: HYDROmorphone 2 MG Tab PO PRN ×2 (08:32→18:05)
[2022-06-27] MEDS: Docusate Sodium 100 MG Cap PO SCH ×2 (09:13→20:14)
[2022-06-27] MEDS: 1: AA 4.25%/Calcium/D10W/Lytes 1,000 ML with MVI, Adult with Vitamin K 10 ML, Zinc/Coppe IV SCH ×3 (14:32)
[2022-06-27] MEDS: Trolamine Salicylate/Aloe Vera 10% Crm 85 GM Tube TOP PRN ×2 (16:01→18:07)
[2022-06-27] MEDS: Melatonin 3 MG Tab PO SCH (20:14)
[2022-06-27] MEDS: atorvaSTATin 20 MG Tab PO SCH (20:14)
[2022-06-27] MEDS: traZODone 50 MG Tab PO SCH (20:15)
[2022-06-27] MEDS: Pantoprazole 40 MG Delayed-Release Granules 1 Packet PO SCH (20:15)
[2022-06-28] MEDS: Ondansetron 4 MG/2 ML SDV IVPUSH PRN (00:10)
[2022-06-28] MEDS: HYDROmorphone 2 MG Tab PO PRN ×4 (00:45→20:47)
[2022-06-28] MEDS: Magnesium Sulfate/Water 2 GM/50 ML BAG IV SCH ×3 (01:30→13:40)
[2022-06-28] MEDS: LORazepam 0.5 MG Tab PO PRN ×2 (01:57→13:40)
[2022-06-28 05:08] LABS: ESTIMATED GFR 100 mL/min (>60)
[2022-06-28] MEDS: Nystatin Susp 100,000 Unit/ML 5 ML UD Cup PO SCH ×4 (05:54→21:10)
[2022-06-28] MEDS ORDERED: Central Total Parenteral Nutrition Bag SCH (07:00)
[2022-06-28] MEDS: Albuterol/Ipratropium 3.0-0.5 MG/3 ML Neb Soln INH SCH ×4 (07:32→20:27)
[2022-06-28] MEDS: 1: AA 4.25%/Calcium/D10W/Lytes 1,000 ML with MVI, Adult with Vitamin K 10 ML, Zinc/Coppe IV SCH ×3 (07:52)
[2022-06-28] MEDS: Insulin Lispro 100 Unit/ML 3 ML KwikPen SUBCUT SCH ×4 (08:08→20:25)
[2022-06-28] MEDS: Aspirin 81 MG Tab.Chew PO SCH (08:13)
[2022-06-28] MEDS: Docusate Sodium 100 MG Cap PO SCH ×2 (08:14→20:28)
[2022-06-28] MEDS: Ticagrelor 90 MG Tab PO SCH ×2 (08:14→20:47)
[2022-06-28] MEDS: Metoprolol Succinate 25 MG Tab.ER PO SCH (08:15)
[2022-06-28] MEDS: FLUoxetine 20 MG Cap PO SCH (08:15)
[2022-06-28] MEDS: Bisacodyl 5 MG Tab PO SCH ×2 (08:16→20:28)
[2022-06-28] MEDS: Insulin Glargine,Human Rec. Analog 100 Units/ML 3 ML Pen SUBCUT SCH ×2 (08:18→20:25)
[2022-06-28] MEDS: Magnesium Hydroxide 400 MG/5 ML Susp 30 ML Cup PO PRN (16:50)
[2022-06-28] MEDS: atorvaSTATin 20 MG Tab PO SCH (20:28)
[2022-06-28] MEDS: Melatonin 3 MG Tab PO SCH (20:28)
[2022-06-28] MEDS: traZODone 50 MG Tab PO SCH (20:29)
[2022-06-28] MEDS: Pantoprazole 40 MG Delayed-Release Granules 1 Packet PO SCH (20:29)
[2022-06-28] MEDS: Acetaminophen 325 MG Tab PO PRN (20:46)
[2022-06-28] MEDS: LORazepam 1 MG Tab PO PRN (20:47)
[2022-06-29] MEDS: 1: AA 4.25%/Calcium/D10W/Lytes 1,000 ML with MVI, Adult with Vitamin K 10 ML, Zinc/Coppe IV SCH ×6 (00:12→17:44)
[2022-06-29] MEDS: HYDROmorphone 2 MG Tab PO PRN ×3 (02:02→16:30)
[2022-06-29] MEDS: Acetaminophen 325 MG Tab PO PRN ×3 (02:04→21:21)
[2022-06-29 05:09] LABS: ESTIMATED GFR 100 mL/min (>60)
[2022-06-29] MEDS: Nystatin Susp 100,000 Unit/ML 5 ML UD Cup PO SCH ×5 (06:19→21:38)
[2022-06-29] MEDS: Albuterol/Ipratropium 3.0-0.5 MG/3 ML Neb Soln INH SCH (07:04)
[2022-06-29] MEDS ORDERED: Central Total Parenteral Nutrition Bag SCH (07:30)
[2022-06-29] MEDS: Insulin Lispro 100 Unit/ML 3 ML KwikPen SUBCUT SCH ×4 (07:59→21:31)
[2022-06-29] MEDS: Ticagrelor 90 MG Tab PO SCH ×2 (08:21→21:20)
[2022-06-29] MEDS: FLUoxetine 20 MG Cap PO SCH (08:21)
[2022-06-29] MEDS: Metoprolol Succinate 25 MG Tab.ER PO SCH (08:21)
[2022-06-29] MEDS: Aspirin 81 MG Tab.Chew PO SCH (08:21)
[2022-06-29] MEDS: Docusate Sodium 100 MG Cap PO SCH ×2 (08:22→21:20)
[2022-06-29] MEDS: Bisacodyl 5 MG Tab PO SCH ×2 (08:22→21:20)
[2022-06-29] MEDS: Insulin Glargine,Human Rec. Analog 100 Units/ML 3 ML Pen SUBCUT SCH ×2 (08:25→21:39)
[2022-06-29] MEDS: LORazepam 0.5 MG Tab PO PRN ×2 (09:03→13:30)
[2022-06-29] MEDS: Melatonin 3 MG Tab PO SCH (21:20)
[2022-06-29] MEDS: atorvaSTATin 20 MG Tab PO SCH (21:20)
[2022-06-29] MEDS: LORazepam 1 MG Tab PO PRN (21:21)
[2022-06-29] MEDS: Pantoprazole 40 MG Delayed-Release Granules 1 Packet PO SCH (21:21)
[2022-06-29] MEDS: traZODone 50 MG Tab PO SCH (21:21)
[2022-06-30] MEDS: HYDROmorphone 2 MG Tab PO PRN ×4 (00:58→21:13)
[2022-06-30 05:23] LABS: ESTIMATED GFR 100 mL/min (>60)
[2022-06-30] MEDS: Nystatin Susp 100,000 Unit/ML 5 ML UD Cup PO SCH ×4 (05:57→21:12)
[2022-06-30] MEDS: Insulin Lispro 100 Unit/ML 3 ML KwikPen SUBCUT SCH ×4 (07:38→21:12)
[2022-06-30] MEDS ORDERED: Central Total Parenteral Nutrition Bag SCH (07:45)
[2022-06-30] MEDS: LORazepam 0.5 MG Tab PO PRN ×2 (07:53→20:06)
[2022-06-30] MEDS: Acetaminophen 325 MG Tab PO PRN ×2 (07:53→14:22)
[2022-06-30] MEDS: Magnesium Hydroxide 400 MG/5 ML Susp 30 ML Cup PO PRN ×2 (07:54→20:06)
[2022-06-30] MEDS: Metoprolol Succinate 25 MG Tab.ER PO SCH (08:23)
[2022-06-30] MEDS: Bisacodyl 5 MG Tab PO SCH ×2 (08:23→20:07)
[2022-06-30] MEDS: Aspirin 81 MG Tab.Chew PO SCH (08:23)
[2022-06-30] MEDS: Insulin Glargine,Human Rec. Analog 100 Units/ML 3 ML Pen SUBCUT SCH ×2 (08:24→21:12)
[2022-06-30] MEDS: FLUoxetine 20 MG Cap PO SCH (08:24)
[2022-06-30] MEDS: Ticagrelor 90 MG Tab PO SCH ×2 (08:25→20:07)
[2022-06-30] MEDS: Docusate Sodium 100 MG Cap PO SCH ×2 (08:25→20:07)
[2022-06-30] MEDS ORDERED: Furosemide 20 MG/2 ML VIAL IVPUSH ONE (11:00)
[2022-06-30] MEDS: 1: AA 4.25%/Calcium/D10W/Lytes 1,000 ML with MVI, Adult with Vitamin K 10 ML, Zinc/Coppe IV SCH ×3 (11:20)
[2022-06-30] MEDS: Magnesium Sulfate/Water 2 GM in Premix Bag 1 BAG IV SCH ×2 (14:21→19:15)
[2022-06-30] MEDS: atorvaSTATin 20 MG Tab PO SCH (20:07)
[2022-06-30] MEDS: Pantoprazole 40 MG Delayed-Release Granules 1 Packet PO SCH (20:08)
[2022-06-30] MEDS: Melatonin 3 MG Tab PO SCH (21:13)
[2022-06-30] MEDS: traZODone 50 MG Tab PO SCH (21:13)
[2022-06-30] MEDS: QUEtiapine 25 MG Tab PO SCH (21:13)
[2022-07-01] MEDS: Magnesium Sulfate/Water 2 GM in Premix Bag 1 BAG IV SCH ×4 (03:44→20:25)
[2022-07-01] MEDS: 1: AA 4.25%/Calcium/D10W/Lytes 1,000 ML with MVI, Adult with Vitamin K 10 ML, Zinc/Coppe IV SCH ×6 (03:47→20:30)
[2022-07-01 05:03] LABS: ESTIMATED GFR 96 mL/min (>60)
[2022-07-01] MEDS: Nystatin Susp 100,000 Unit/ML 5 ML UD Cup PO SCH (07:23)
[2022-07-01] MEDS ORDERED: Central Total Parenteral Nutrition Bag SCH (07:45)
[2022-07-01] MEDS: Insulin Lispro 100 Unit/ML 3 ML KwikPen SUBCUT SCH ×4 (08:43→21:01)
[2022-07-01] MEDS: HYDROmorphone 2 MG Tab PO PRN ×2 (09:23→15:20)
[2022-07-01] MEDS: Ticagrelor 90 MG Tab PO SCH ×2 (09:24→21:03)
[2022-07-01] MEDS: FLUoxetine 20 MG Cap PO SCH (09:25)
[2022-07-01] MEDS: Bisacodyl 5 MG Tab PO SCH ×2 (09:25→21:02)
[2022-07-01] MEDS: Metoprolol Succinate 25 MG Tab.ER PO SCH (09:26)
[2022-07-01] MEDS: Docusate Sodium 100 MG Cap PO SCH ×3 (09:28→21:03)
[2022-07-01] MEDS: Aspirin 81 MG Tab.Chew PO SCH (09:28)
[2022-07-01] MEDS: Insulin Glargine,Human Rec. Analog 100 Units/ML 3 ML Pen SUBCUT SCH ×2 (09:29→21:02)
[2022-07-01] MEDS: LORazepam 0.5 MG Tab PO PRN ×2 (14:48→19:19)
[2022-07-01] MEDS: Melatonin 3 MG Tab PO SCH (21:03)
[2022-07-01] MEDS: QUEtiapine 25 MG Tab PO SCH (21:03)
[2022-07-01] MEDS: traZODone 50 MG Tab PO SCH (21:04)
[2022-07-01] MEDS: Pantoprazole 40 MG Delayed-Release Granules 1 Packet PO SCH (21:04)
[2022-07-01] MEDS: atorvaSTATin 20 MG Tab PO SCH (21:04)
[2022-07-02] MEDS: Magnesium Sulfate/Water 2 GM in Premix Bag 1 BAG IV SCH ×4 (02:13→19:34)
[2022-07-02] MEDS: LORazepam 1 MG Tab PO PRN ×2 (03:10→20:39)
[2022-07-02] MEDS: HYDROmorphone 2 MG Tab PO PRN ×2 (05:24→15:42)
[2022-07-02 05:31] LABS: ESTIMATED GFR 100 mL/min (>60)
[2022-07-02] MEDS: Aspirin 81 MG Tab.Chew PO SCH ×2 (07:50→08:06)
[2022-07-02] MEDS: Metoprolol Succinate 25 MG Tab.ER PO SCH ×2 (07:50→08:07)
[2022-07-02] MEDS: Ticagrelor 90 MG Tab PO SCH ×2 (07:50→08:07)
[2022-07-02] MEDS: FLUoxetine 20 MG Cap PO SCH ×2 (07:50→08:07)
[2022-07-02] MEDS: LORazepam 0.5 MG Tab PO PRN ×2 (07:58→15:42)
[2022-07-02] MEDS: Insulin Lispro 100 Unit/ML 3 ML KwikPen SUBCUT SCH ×4 (08:00→22:04)
[2022-07-02] MEDS: Insulin Glargine,Human Rec. Analog 100 Units/ML 3 ML Pen SUBCUT SCH ×2 (08:03→22:05)
[2022-07-02] MEDS: Docusate Sodium 100 MG Cap PO SCH ×2 (08:06→20:40)
[2022-07-02] MEDS: Bisacodyl 5 MG Tab PO SCH ×2 (08:06→20:40)
[2022-07-02] MEDS ORDERED: Lidocaine 1% with EPINEPHrine 1:100,000 50 ML MDV ONE (08:59)
[2022-07-02] MEDS ORDERED: Bupivacaine 0.5% 30 ML SDV ONE (08:59)
[2022-07-02] MEDS ORDERED: Propofol 200 MG/20 ML SDV ONE (10:23)
[2022-07-02] MEDS ORDERED: fentaNYL 100 MCG/2 ML SDV ONE (10:23)
[2022-07-02] MEDS ORDERED: Sodium Chloride 0.9% 10 ML ONE (11:15)
[2022-07-02] MEDS ORDERED: Meropenem 500 MG SDV ONE (11:15)
[2022-07-02] MEDS: [UNRECOGNIZED DRUG - OTHER] IRR ONE ×4 (12:44→13:04)
[2022-07-02] MEDS: POLYMYXIN B IRR ONE ×4 (12:44→13:04)
[2022-07-02] MEDS: NEOMYCIN IRR ONE ×4 (12:44→13:04)
[2022-07-02] MEDS ORDERED: Furosemide 20 MG/2 ML VIAL IVPUSH ONE (14:00)
[2022-07-02] MEDS: 1: AA 4.25%/Calcium/D10W/Lytes 1,000 ML with MVI, Adult with Vitamin K 10 ML, Zinc/Coppe IV SCH ×3 (15:38)
[2022-07-02] MEDS: Divalproex Sodium Delayed-Release 125 MG Cap.Sprink PO SCH (17:42)
[2022-07-02] MEDS: traZODone 50 MG Tab PO SCH (20:40)
[2022-07-02] MEDS: Pantoprazole 40 MG Delayed-Release Granules 1 Packet PO SCH (20:40)
[2022-07-02] MEDS: atorvaSTATin 20 MG Tab PO SCH (20:40)
[2022-07-02] MEDS: Melatonin 3 MG Tab PO SCH (20:40)
[2022-07-02] MEDS: QUEtiapine 25 MG Tab PO SCH (20:40)
[2022-07-03] MEDS: Magnesium Sulfate/Water 2 GM in Premix Bag 1 BAG IV SCH ×4 (01:13→19:53)
[2022-07-03 05:50] LABS: ESTIMATED GFR 100 mL/min (>60)
[2022-07-03] MEDS: Insulin Lispro 100 Unit/ML 3 ML KwikPen SUBCUT SCH ×4 (07:33→21:22)
[2022-07-03] MEDS: 1: AA 4.25%/Calcium/D10W/Lytes 1,000 ML with MVI, Adult with Vitamin K 10 ML, Zinc/Coppe IV SCH ×6 (08:03→23:34)
[2022-07-03] MEDS: LORazepam 0.5 MG Tab PO PRN ×2 (08:06→14:17)
[2022-07-03] MEDS: HYDROmorphone 2 MG Tab PO PRN ×3 (08:06→21:23)
[2022-07-03] MEDS: Divalproex Sodium Delayed-Release 125 MG Cap.Sprink PO SCH ×2 (08:39→17:06)
[2022-07-03] MEDS: Docusate Sodium 100 MG Cap PO SCH ×2 (08:40→21:25)
[2022-07-03] MEDS: Metoprolol Succinate 25 MG Tab.ER PO SCH (08:40)
[2022-07-03] MEDS: FLUoxetine 20 MG Cap PO SCH (08:40)
[2022-07-03] MEDS: Insulin Glargine,Human Rec. Analog 100 Units/ML 3 ML Pen SUBCUT SCH ×2 (08:40→21:27)
[2022-07-03] MEDS: Aspirin 81 MG Tab.Chew PO SCH (08:40)
[2022-07-03] MEDS: Bisacodyl 5 MG Tab PO SCH ×2 (08:40→21:23)
[2022-07-03] MEDS ORDERED: Furosemide 20 MG/2 ML VIAL IVPUSH ONE (12:00)
[2022-07-03] MEDS: Acetaminophen 325 MG Tab PO PRN (21:23)
[2022-07-03] MEDS: LORazepam 1 MG Tab PO PRN (21:23)
[2022-07-03] MEDS: QUEtiapine 25 MG Tab PO SCH (21:24)
[2022-07-03] MEDS: Pantoprazole 40 MG Delayed-Release Granules 1 Packet PO SCH (21:24)
[2022-07-03] MEDS: Melatonin 3 MG Tab PO SCH (21:25)
[2022-07-03] MEDS: traZODone 50 MG Tab PO SCH (21:25)
[2022-07-03] MEDS: atorvaSTATin 20 MG Tab PO SCH (21:25)
[2022-07-04] MEDS: Magnesium Sulfate/Water 2 GM in Premix Bag 1 BAG IV SCH ×2 (01:17→07:30)
[2022-07-04 06:17] LABS: ESTIMATED GFR 119 mL/min (>60)
[2022-07-04] MEDS: Insulin Lispro 100 Unit/ML 3 ML KwikPen SUBCUT SCH ×4 (07:33→21:40)
[2022-07-04] MEDS: Divalproex Sodium Delayed-Release 125 MG Cap.Sprink PO SCH ×2 (07:34→17:29)
[2022-07-04] MEDS ORDERED: Central Total Parenteral Nutrition Bag SCH (08:00)
[2022-07-04] MEDS: Insulin Glargine,Human Rec. Analog 100 Units/ML 3 ML Pen SUBCUT SCH ×2 (09:35→21:45)
[2022-07-04] MEDS: Docusate Sodium 100 MG Cap PO SCH ×2 (09:36→21:42)
[2022-07-04] MEDS: Aspirin 81 MG Tab.Chew PO SCH (09:36)
[2022-07-04] MEDS: Bisacodyl 5 MG Tab PO SCH ×2 (09:36→21:42)
[2022-07-04] MEDS: Metoprolol Succinate 25 MG Tab.ER PO SCH (09:36)
[2022-07-04] MEDS: FLUoxetine 20 MG Cap PO SCH (09:36)
[2022-07-04] MEDS: LORazepam 0.5 MG Tab PO PRN ×2 (13:02→18:01)
[2022-07-04] MEDS: HYDROmorphone 2 MG Tab PO PRN (13:02)
[2022-07-04] MEDS: 1: AA 4.25%/Calcium/D10W/Lytes 1,000 ML with MVI, Adult with Vitamin K 10 ML, Zinc/Coppe IV SCH ×3 (14:18)
[2022-07-04] MEDS: Melatonin 3 MG Tab PO SCH (21:42)
[2022-07-04] MEDS: atorvaSTATin 20 MG Tab PO SCH (21:42)
[2022-07-04] MEDS: Pantoprazole 40 MG Delayed-Release Granules 1 Packet PO SCH (21:43)
[2022-07-04] MEDS: traZODone 50 MG Tab PO SCH (21:43)
[2022-07-04] MEDS: QUEtiapine 25 MG Tab PO SCH (21:44)
[2022-07-04] MEDS: LORazepam 1 MG Tab PO PRN (23:01)
[2022-07-05] MEDS: HYDROmorphone 2 MG Tab PO PRN ×4 (00:05→21:54)
[2022-07-05 06:15] LABS: ESTIMATED GFR 100 mL/min (>60)
[2022-07-05] MEDS: 1: AA 4.25%/Calcium/D10W/Lytes 1,000 ML with MVI, Adult with Vitamin K 10 ML, Zinc/Coppe IV SCH ×3 (07:05)
[2022-07-05] MEDS: Divalproex Sodium Delayed-Release 125 MG Cap.Sprink PO SCH ×2 (07:12→16:18)
[2022-07-05] MEDS ORDERED: Central Total Parenteral Nutrition Bag SCH (07:15)
[2022-07-05] MEDS: Insulin Lispro 100 Unit/ML 3 ML KwikPen SUBCUT SCH ×4 (07:37→21:24)
[2022-07-05] MEDS: FLUoxetine 20 MG Cap PO SCH (08:46)
[2022-07-05] MEDS: Metoprolol Succinate 25 MG Tab.ER PO SCH (08:46)
[2022-07-05] MEDS: Aspirin 81 MG Tab.Chew PO SCH (08:46)
[2022-07-05] MEDS: Insulin Glargine,Human Rec. Analog 100 Units/ML 3 ML Pen SUBCUT SCH ×2 (08:47→21:55)
[2022-07-05] MEDS: Bupivacaine 0.5%/EPINEPHrine 1:200,000 50 ML MDV ONE ×2 (08:48→10:28)
[2022-07-05] MEDS: Lidocaine 1% 50 ML MDV ONE ×2 (08:49→10:28)
[2022-07-05] MEDS ORDERED: fentaNYL 100 MCG/2 ML SDV ONE ×2 (08:52→09:42)
[2022-07-05] MEDS: Docusate Sodium 100 MG Cap PO SCH ×2 (08:52→22:12)
[2022-07-05] MEDS: Bisacodyl 5 MG Tab PO SCH ×2 (08:52→21:55)
[2022-07-05] MEDS ORDERED: Propofol 200 MG/20 ML SDV ONE (08:53)
[2022-07-05] MEDS ORDERED: Sodium Chloride 0.9% 10 ML ONE (09:04)
[2022-07-05] MEDS ORDERED: ePHEDrine 50 MG/ML SDV ONE (09:04)
[2022-07-05] MEDS: LORazepam 0.5 MG Tab PO PRN (09:31)
[2022-07-05] MEDS ORDERED: Lactated Ringers 1,000 ML ONE (09:45)
[2022-07-05] MEDS: Magnesium Hydroxide 400 MG/5 ML Susp 30 ML Cup PO PRN (13:19)
[2022-07-05] MEDS: LORazepam 1 MG Tab PO PRN (21:53)
[2022-07-05] MEDS: Acetaminophen 325 MG Tab PO PRN (21:54)
[2022-07-05] MEDS: Melatonin 3 MG Tab PO SCH (21:56)
[2022-07-05] MEDS: Pantoprazole 40 MG Delayed-Release Granules 1 Packet PO SCH (21:56)
[2022-07-05] MEDS: atorvaSTATin 20 MG Tab PO SCH (21:57)
[2022-07-05] MEDS: QUEtiapine 25 MG Tab PO SCH (21:57)
[2022-07-05] MEDS: traZODone 50 MG Tab PO SCH (22:08)
[2022-07-06] MEDS: 1: AA 4.25%/Calcium/D10W/Lytes 1,000 ML with MVI, Adult with Vitamin K 10 ML, Zinc/Coppe IV SCH ×6 (00:15→16:54)
[2022-07-06 05:55] LABS: ESTIMATED GFR 105 mL/min (>60)
[2022-07-06] MEDS ORDERED: Central Total Parenteral Nutrition Bag SCH (07:15)
[2022-07-06] MEDS: Insulin Lispro 100 Unit/ML 3 ML KwikPen SUBCUT SCH ×4 (08:17→22:20)
[2022-07-06] MEDS: Divalproex Sodium Delayed-Release 125 MG Cap.Sprink PO SCH ×2 (08:17→16:54)
[2022-07-06] MEDS: Aspirin 81 MG Tab.Chew PO SCH (08:17)
[2022-07-06] MEDS: Docusate Sodium 100 MG Cap PO SCH ×2 (08:18→22:36)
[2022-07-06] MEDS: FLUoxetine 20 MG Cap PO SCH (08:18)
[2022-07-06] MEDS: Bisacodyl 5 MG Tab PO SCH ×2 (08:18→22:36)
[2022-07-06] MEDS: Metoprolol Succinate 25 MG Tab.ER PO SCH (08:18)
[2022-07-06] MEDS ORDERED: Ticagrelor 90 MG Tab PO SCH (09:00)
[2022-07-06] MEDS: Ticagrelor 90 MG Tab PO SCH ×2 (09:47→22:34)
[2022-07-06] MEDS: Insulin Glargine,Human Rec. Analog 100 Units/ML 3 ML Pen SUBCUT SCH ×2 (10:27→22:22)
[2022-07-06] MEDS: HYDROmorphone 2 MG Tab PO PRN ×2 (10:54→17:47)
[2022-07-06] MEDS: Acetaminophen 325 MG Tab PO PRN ×2 (15:32→22:43)
[2022-07-06] MEDS: LORazepam 0.5 MG Tab PO PRN (15:32)
[2022-07-06] MEDS: Trolamine Salicylate/Aloe Vera 10% Crm 85 GM Tube TOP PRN (17:42)
[2022-07-06] MEDS ORDERED: Insulin Glargine,Human Rec. Analog 100 Units/ML 3 ML Pen SUBCUT SCH (21:00)
[2022-07-06] MEDS: LORazepam 1 MG Tab PO PRN (22:29)
[2022-07-06] MEDS: Melatonin 3 MG Tab PO SCH (22:29)
[2022-07-06] MEDS: QUEtiapine 25 MG Tab PO SCH (22:34)
[2022-07-06] MEDS: atorvaSTATin 20 MG Tab PO SCH (22:34)
[2022-07-06] MEDS: traZODone 50 MG Tab PO SCH (22:38)
[2022-07-06] MEDS: Pantoprazole 40 MG Delayed-Release Granules 1 Packet PO SCH (22:38)
[2022-07-07] MEDS: Acetaminophen 325 MG Tab PO PRN ×2 (03:26→12:56)
[2022-07-07] MEDS: LORazepam 0.5 MG Tab PO PRN ×2 (03:26→09:32)
[2022-07-07 05:45] LABS: ESTIMATED GFR 100 mL/min (>60)
[2022-07-07] MEDS ORDERED: Central Total Parenteral Nutrition Bag SCH (07:00)
[2022-07-07] MEDS: Ondansetron 4 MG/2 ML SDV IVPUSH PRN (07:42)
[2022-07-07] MEDS: Insulin Lispro 100 Unit/ML 3 ML KwikPen SUBCUT SCH ×4 (09:10→21:10)
[2022-07-07] MEDS: Magnesium Sulfate/Water 2 GM/50 ML BAG IV SCH ×3 (09:11→21:09)
[2022-07-07] MEDS: 1: AA 4.25%/Calcium/D10W/Lytes 1,000 ML with MVI, Adult with Vitamin K 10 ML, Zinc/Coppe IV SCH ×3 (09:20)
[2022-07-07] MEDS: Ticagrelor 90 MG Tab PO SCH ×2 (09:30→21:09)
[2022-07-07] MEDS: Metoprolol Succinate 25 MG Tab.ER PO SCH (09:30)
[2022-07-07] MEDS: FLUoxetine 20 MG Cap PO SCH (09:30)
[2022-07-07] MEDS: Aspirin 81 MG Tab.Chew PO SCH (09:30)
[2022-07-07] MEDS: Docusate Sodium 100 MG Cap PO SCH ×2 (09:30→21:10)
[2022-07-07] MEDS: Divalproex Sodium Delayed-Release 125 MG Cap.Sprink PO SCH ×2 (09:31→17:28)
[2022-07-07] MEDS: Bisacodyl 5 MG Tab PO SCH ×2 (09:31→21:11)
[2022-07-07] MEDS: HYDROmorphone 2 MG Tab PO PRN ×2 (09:32→20:19)
[2022-07-07] MEDS: Insulin Glargine,Human Rec. Analog 100 Units/ML 3 ML Pen SUBCUT SCH ×2 (09:38→21:11)
[2022-07-07] MEDS: Trolamine Salicylate/Aloe Vera 10% Crm 85 GM Tube TOP PRN (13:03)
[2022-07-07] MEDS: LORazepam 1 MG Tab PO PRN (21:08)
[2022-07-07] MEDS: Melatonin 3 MG Tab PO SCH (21:08)
[2022-07-07] MEDS: QUEtiapine 25 MG Tab PO SCH (21:08)
[2022-07-07] MEDS: atorvaSTATin 20 MG Tab PO SCH (21:13)
[2022-07-07] MEDS: traZODone 50 MG Tab PO SCH (21:16)
[2022-07-07] MEDS: Pantoprazole 40 MG Delayed-Release Granules 1 Packet PO SCH (21:16)
[2022-07-08] MEDS: 1: AA 4.25%/Calcium/D10W/Lytes 1,000 ML with MVI, Adult with Vitamin K 10 ML, Zinc/Coppe IV SCH ×3 (02:29)
[2022-07-08] MEDS: Magnesium Sulfate/Water 2 GM/50 ML BAG IV SCH ×2 (04:04→08:28)
[2022-07-08] MEDS: HYDROmorphone 2 MG Tab PO PRN (04:08)
[2022-07-08 05:17] LABS: ESTIMATED GFR 100 mL/min (>60)
[2022-07-08] MEDS ORDERED: Central Total Parenteral Nutrition Bag SCH (07:30)
[2022-07-08] MEDS: Insulin Lispro 100 Unit/ML 3 ML KwikPen SUBCUT SCH ×2 (08:27→12:05)
[2022-07-08] MEDS: Aspirin 81 MG Tab.Chew PO SCH (08:28)
[2022-07-08] MEDS: Divalproex Sodium Delayed-Release 125 MG Cap.Sprink PO SCH (08:28)
[2022-07-08] MEDS: Metoprolol Succinate 25 MG Tab.ER PO SCH (08:28)
[2022-07-08] MEDS: Bisacodyl 5 MG Tab PO SCH (08:29)
[2022-07-08] MEDS: FLUoxetine 20 MG Cap PO SCH (08:29)
[2022-07-08] MEDS: Ticagrelor 90 MG Tab PO SCH (08:29)
[2022-07-08] MEDS: Docusate Sodium 100 MG Cap PO SCH (08:29)
[2022-07-08] MEDS: Insulin Glargine,Human Rec. Analog 100 Units/ML 3 ML Pen SUBCUT SCH (08:32)
[2022-07-08] MEDS ORDERED: Clindamycin Phosphate 900 MG in Sodium Chloride 0.9% 100 ML IV ONE (12:30)
== END 2022-07-08 14:05 | DRG 619 ==
LOC: JP.SDSSCHI 05:18 → JP.SDS 05:18 → EDSTATUS 07:15 → JP.MS 11:30 → JP.ICU 06-11 10:59 → JP.MS 07-02 12:01
PROVIDERS: ADMIT Surgery; ATTEND Surgery
PROC: 02H633Z Insertion of Infusion Device into Right Atrium, Percutaneous Approach (ICD-10-PCS; 2022-06-08)
PROC: 0D190ZB Bypass Duodenum to Ileum, Open Approach (ICD-10-PCS; principal; 2022-06-10)
PROC: 0DB80ZZ Excision of Small Intestine, Open Approach (ICD-10-PCS; 2022-06-10)
PROC: 0FB20ZX Excision of Left Lobe Liver, Open Approach, Diagnostic (ICD-10-PCS; 2022-06-10)
PROC: 0JB80ZZ Excision of Abdomen Subcutaneous Tissue and Fascia, Open Approach (ICD-10-PCS; 2022-06-10)
PROC: 0DBW0ZZ Excision of Peritoneum, Open Approach (ICD-10-PCS; 2022-06-10)
PROC: 0DB60ZZ Excision of Stomach, Open Approach (ICD-10-PCS; 2022-06-10)
PROC: 3E0M05Z Introduction of Adhesion Barrier into Peritoneal Cavity, Open Approach (ICD-10-PCS; 2022-06-10)
PROC: BW11YZZ Fluoroscopy of Abdomen and Pelvis using Other Contrast (ICD-10-PCS; 2022-06-12)
PROC: 30233N1 Transfusion of Nonautologous Red Blood Cells into Peripheral Vein, Percutaneous Approach (ICD-10-PCS; 2022-06-12)
PROC: 0W9G0ZZ Drainage of Peritoneal Cavity, Open Approach (ICD-10-PCS; 2022-06-15)
PROC: 0W9G0ZZ Drainage of Peritoneal Cavity, Open Approach (ICD-10-PCS; 2022-06-15)
PROC: 0DQ90ZZ Repair Duodenum, Open Approach (ICD-10-PCS; 2022-06-15)
PROC: 5A1945Z Respiratory Ventilation, 24-96 Consecutive Hours (ICD-10-PCS; 2022-06-15)
PROC: 3E033XZ Introduction of Vasopressor into Peripheral Vein, Percutaneous Approach (ICD-10-PCS; 2022-06-16)
PROC: 3E0336Z Introduction of Nutritional Substance into Peripheral Vein, Percutaneous Approach (ICD-10-PCS; 2022-06-16)
PROC: 0WQF0ZZ Repair Abdominal Wall, Open Approach (ICD-10-PCS; 2022-06-18)
PROC: 0DP Gastrointestinal System, Removal (ICD-10-PCS; 2022-07-02)
PROC: 0D9930Z Drainage of Duodenum with Drainage Device, Percutaneous Approach (ICD-10-PCS; 2022-07-02)
DX: E66.01 Morbid (severe) obesity due to excess calories (principal); I63.9 Cerebral infarction, unspecified; K95.89 Other complications of other bariatric procedure; N17.9 Acute kidney failure, unspecified; R18.8 Other ascites; K91.840 Postprocedural hemorrhage of a digestive system organ or structure following a digestive system procedure; G81.91 Hemiplegia, unspecified affecting right dominant side; R47.01 Aphasia; Z20.822 Contact with and (suspected) exposure to COVID-19; R16.0 Hepatomegaly, not elsewhere classified; D17.1 Benign lipomatous neoplasm of skin and subcutaneous tissue of trunk; K66.0 Peritoneal adhesions (postprocedural) (postinfection); D64.89 Other specified anemias; E11.65 Type 2 diabetes mellitus with hyperglycemia; I95.9 Hypotension, unspecified; I25.10 Atherosclerotic heart disease of native coronary artery without angina pectoris; E78.00 Pure hypercholesterolemia, unspecified; K21.9 Gastro-esophageal reflux disease without esophagitis; E11.42 Type 2 diabetes mellitus with diabetic polyneuropathy; Z79.82 Long term (current) use of aspirin; Z79.4 Long term (current) use of insulin; Z68.33 Body mass index [BMI] 33.0-33.9, adult; Z87.891 Personal history of nicotine dependence; I25.2 Old myocardial infarction
CPT/HCPCS: 36415; 36430; 36569; 36600; 51702; 70470; 70551; 70551-26; 71045; 71045-26; 74176; 74176-26; 74177; 74177-26; 76000; 77001; 80048; 80053; 81001; 82803; 82947; 83036; 83735; 83880; 84100; 85018; 85025; 85027; 86140; 86850; 86900; 86901; 86920; 86922; 87040; 87070; 87075; 87077; 87186; 87205; 88304; 88305; 88307; 88313; 92507-GN; 92610-GN; 93306; 93880; 93880-26; 93970; 93970-26; 94002; 94003; 94640; 94660; 96105-GN; 97110-GO; 97110-GP; 97112-GP; 97140-GP; 97163-GP; 97164-GP; 97166-GO; 97530-GO; 97530-GP; 97535-GO; A9270-GY; C1751; C9113; J0171; J0330; J0694; J1100; J1170; J1200; J1642; J1644; J1815; J1815-GY; J1940; J1956; J2001; J2020; J2060; J2185; J2250; J2405; J2704; J2710; J2765; J2795; J3010; J3410; J3411; J3420; J3475; J3490; J7030; J7040; J7120; J7121; J7189; J7620; P9016; P9047; Q9967; U0002